=== PATIENT | male | born 1990 | race Caucasian/White ===

== ENCOUNTER 2019-09-03 17:29 | Emergency (ER) | payer BC, SELFPAY ==
--- NOTE | ~2019-09-03 | XR_ITS ---
EXAMINATION: XR chest 1V portable INDICATION: Fever and fatigue TECHNIQUE: Portable AP chest at 1806 hours COMPARISON: None available FINDINGS: The lungs are free of acute opacities. There is no pleural effusion or pneumothorax. The ca rdiomediastinal silhouette is normal. The visualized bones and soft tissues are unremarkable. IMPRESSION: 1. No acute cardiopulmonary abnormality. Reviewed, dictated and finalized at location A.
[2019-09-03 17:30] VITALS: BP 142/64; PULSE 84; RESP 16; TEMP 38.5; O2SAT 100
[2019-09-03 17:41] LABS: Glucose Point of Care 104 (65-105)
--- NOTE | 2019-09-03 17:47 | ED.ABDPAIN ---
HPI - Abdominal Pain General Chief Complaint: Dizziness <Oumar Martinez PA-C - Last Filed: 09/03/19 20:17> Stated Complaint: dizzy <MINH Green Last Filed: 09/03/19 20:17> Time Seen by Provider: 09/03/19 17:31 <MINH Green Last Filed: 09/03/19 20:17> Source: patient and EMS <MINH Green Last Filed: 09/03/19 20:17> Mode of arrival: ambulatory <MINH Green Last Filed: 09/03/19 20:17> Limitations: no limitations <MINH Green Last Filed: 09/03/19 20:17> History of Present Illness HPI narrative: Patient is a 28-year-old male who presents to emergency department for evaluation of feeling fatigued with body aches 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 patient on arrival to emergency department notes some discomfort of the abdomen states she has associated congestion and rhinorrhea patient otherwise resting comfortably in the room upon arrival in no distress has not had anything for his symptoms knows that he did take some Aleve today for back pain was unsure if if that may be causing him to feel dizzy <Oumar Martinez PA-C - Last Filed: 09/03/19 20:17> Related Data Allergies/Adverse Reactions: Allergies Allergy/AdvReac Type Severity Reaction Status Date / Time No Known Allergies Allergy Verified 09/03/19 20:16 <Oumar Martinez PA-C - Last Filed: 09/03/19 20:17> Review of Systems Review of Systems: All systems reviewed & are unremarkable except as noted in HPI and below <Oumar Martinez PA-C - Last Filed: 09/03/19 20:17> PMFSH Social History Social History: Social History (Updated 09/03/19 @ 17:49 by Oumar Martinez PA-C) Smoking status: Never smoker <MINH Green Last Filed: 09/03/19 20:17> Exam Narrative: Exam Narrative: GENERAL: Well-appearing, well-nourished, and in no acute distress. HEAD: Normocephalic, atraumatic. EYES: PERRLA and EOMI. ENT: Nares clear, no rhinorrhea or epistaxis. Mucous membranes moist. CHEST: Clear to auscultation. No respiratory distress. No wheezes rales or rhonchi HEART: Regular rate and rhythm. No murmur heard. Normal peripheral pulses. ABDOMEN: Soft, epigastric tenderness to palpation, nondistended, normal active bowel sounds. EXTREMITIES: Normal range of motion. No edema. SKIN: Warm, dry, no rash. NEURO: No focal deficits. Alert and oriented x3. Cranial nerves II through XII grossly intact PSYCH: Normal mood and affect. <Oumar Martinez PA-C - Last Filed: 09/03/19 20:17> Course Course Emergency Course: Patient in the room at this time resting comfortably denying any further symptomology to include URI symptoms or GI complaint refusing any further testing at this time and notes that he would like to be discharged home and will follow up with primary care noting that he typically sees doctors at [facility]. Patient wanting to eat. Patient nontoxic-appearing no distress. Patient will be tested for COVID-19 given the fever. Patient notes that he believes it to have been heat exposure that caused the elevated temperature and denies other symptomology or complaints at this time <MINH Green Last Filed: 09/03/19 20:17> Reevaluation(s) Reevaluation #1: Patient in the room in no distress resting comfortably eating no other complaints would like to be discharged home at this time noting that he will follow-up as instructed <MINH Green Last Filed: 09/03/19 20:17> Date: 09/03/19 <MINH Green Last Filed: 09/03/19 20:17> Time: 20:13 <MINH Green Last Filed: 09/03/19 20:17> Vital Signs Vital signs: Vital Signs Temperature 101.3 F H 09/03/19 17:30 Pulse Rate 84 09/03/19 17:30 Respiratory Rate 16 09/03/19 17:30 Blood Pressure 142/64 H 09/03/19 17:30 Pulse Oximetry 100 09/03/19 17:30 Temperature 100.1 F H 09/03/19 20:21 Pulse Rate 102 H
[2019-09-03] MEDS: FAMOTIDINE 20 MG/2 ML VIAL IV PUSH (17:51)
[2019-09-03] MEDS: ONDANSETRON INJ 4 MG/2 ML VIAL IV PUSH (17:51)
[2019-09-03] MEDS: SODIUM CHLORIDE 0.9% IV 1,000 ML 999 ML IV CONT (17:51)
[2019-09-03 18:00] VITALS: BP 143/63; PULSE 85; RESP 16; O2SAT 98
[2019-09-03 18:49] LABS: Basophils Percent Auto 0.3 % (0.2-1.2); Eosinophils Percent Auto 0.2 % (0-4.4); Hematocrit 39.5 % (42.0-52.0); Hemoglobin 13.1 g/dL (14.0-18.0); Immature Granulocyte Absolute 0.05 K/mm3 (0.00-0.031); Immature Granulocyte Percent A 0.4 % (0-0.5); Lymphocytes Absolute Auto 0.58 K/mm3 (0.9-3.2); Lymphocytes Percent Auto 4.9 % (18.3-44.2); Mean Corpuscular HGB Conc 33.2 g/dl (32-36); Mean Corpuscular Hemoglobin 30.3 pg (26-34); Mean Corpuscular Volume 91.2 fl (80-100); Mean Platelet Volume 9.9 fl (7.4-10.4); Monocytes Percent Auto 8.8 % (2.6-8.5); Neutrophils Absolute Auto 10.1 K/mm3 (1.3-6.7); Neutrophils Percent Auto 85.4 % (45.5-73.1); Platelet Count Result 293 k/mm3 (150-375); Red Blood Count 4.33 M/mm3 (4.6-6.20); Red Cell Distribution Width 12.1 % (11.5-14.5); White Blood Count 11.8 K/mm3 (4.5-10.0)
[2019-09-03 19:00] LABS: Lactic Acid Reflex 1.4 mmol/L (0.7-2.1)
[2019-09-03 19:01] LABS: Alanine Aminotransferase 18 U/L (4-50); Albumin Level 4.1 g/dL (3.5-5.1); Alkaline Phosphatase 76 U/L (38-126); Aspartate Amino Transferase 29 U/L (17-59); Bilirubin,Total 0.5 mg/dL (0.2-1.3); Blood Urea Nitrogen 7 mg/dL (9-20); Calcium 8.7 mg/dL (8.4-10.2); Carbon Dioxide 27 mmol/L (22-30); Chloride 101 mmol/L (98-107); Estimated CRCL calculation 89 ml/min; Estimated Glomerular Filt Rate > 60; Glucose 92 mg/dL (75-110); Potassium 3.2 mmol/L (3.4-5.0); Sodium 134 mmol/L (137-145)
[2019-09-03 20:21] VITALS: BP 129/74; PULSE 102; RESP 18; TEMP 37.8; O2SAT 98
[2019-09-03 21:09] LABS: Amphetamine Screen Urine Negative (Negative); Barbiturate Screen Urine Negative (Negative); Benzodiazepines Screen Urine Negative (Negative); Cannabinoid Screen Urine Negative (Negative); Cocaine Screen Urine Negative (Negative); Methadone Screen Urine Negative (Negative); Opiate Screen Urine Negative (Negative); Phencyclidine Screen Urine Negative (Negative)
[2019-09-03 21:31] LABS: Add Urine Microscopic? NO; Appearance Urine Clear (Clear); Bilirubin Urine Negative (Negative); Blood Urine Negative (Negative); Color Urine Colorless (Yellow); Glucose Urine UA Negative (Negative); Ketones Urine Negative (Negative); Leukocyte Esterase Ur Negative LEU/UL (Negative); Nitrate Urine Negative (Negative); Protein Urine Negative (Negative); Specific Grav Ur 1.006 (1.001-1.035); Urobilinogen Urine Negative mg/dL (<2.0)
[2019-09-04 13:33] LABS: SARS-CoV-2 RNA PCR Negative
== END 2019-09-03 20:40 | disposition home or self-care (01) ==
PROVIDERS: Emergency Medicine Emergency Medical Services; Emergency Provider General Practice
DX: R50.9 Fever, unspecified (principal); Z20.828 Contact with and (suspected) exposure to other viral communicable diseases
CPT/HCPCS: 36415; 71045; 80053; 80307; 81003; 83605; 85025; 87040; 87635; 96361; 96374; 96375; 99284; C9803; J2405; J7030; U0003